=== PATIENT | female | born 1955 | race Caucasian/White ===

== ENCOUNTER 2023-02-06 12:45 | Outpatient (CLI) | payer MEDICARE, BC, SELFPAY ==
--- NOTE | 2023-02-06 13:00 | CRLHL7_ITS ---
For Patients: As a result of the Century Cures Act, medical imaging exams and procedure reports are released immediately into your electronic medical record. You may view this report before your referring provider. If you have questions, please contact your health care provider. Indication: Digestive Disorder HX OF CONNECTIVE TISSUE DISEASE HX OF PROLAPSE REPAIR Technique: Postcontrast CT abdomen and pelvis. 69 cc Isovue 370 intravenous contrast. Please note that all CT scans at this facility use dose modulation, iterative reconstruction, and/or weight-based dosing when appropriate to reduce radiation dose to as low as reasonably achievable. Comparison: 08/21/2019 Findings: Calcified mediastinal lymph node on the left is similar. Calcified lingular nodule is also unchanged. Linear subsegmental scarring is present in the right lower lobe. There is no pleural effusion. Postop changes gastric bypass surgery and splenic artery aneurysm embolization, as before. Elevation right hemidiaphragm is stable. Stable cyst within the dome of the liver within the right hepatic lobe. Other smaller cysts are present within the left hepatic lobe and inferior aspect of the right hepatic lobe. Calcified hepatic and splenic granulomas are present. The pancreatic parenchyma is similar. No biliary obstruction. Gallbladder appears similar. Atherosclerotic changes. No aneurysm. Bladder normal. No pelvic soft tissue mass. Increased stool within the rectum. No diverticulitis. Moderate colonic stool elsewhere. No small bowel obstruction. No abdominal wall hernia. No acute inflammatory changes. Adrenal glands are normal. No perinephric stranding. Incidental parapelvic cysts left kidney. Punctate stone within the right kidney is stable. Impression: Increased stool throughout the colon, particularly in the rectum compatible with constipation. No mechanical bowel obstruction or inflammatory changes. Stable postop changes of gastric bypass and splenic artery aneurysm embolization. Punctate nonobstructing stone right kidney is again noted. Small incidental hepatic cysts. Sequela of granulomatous disease. Please note that all CT scans at this facility use dose modulation, iterative reconstruction, and/or weight-based dosing when appropriate to reduce radiation dose to as low as reasonably achievable. Dictated by Sourav Peres MD @ 02/07/2023 11:53:45 AM (Electronically Signed)
[2023-02-06 13:52] LABS: Creatinine* 0.6 mg/dL (0.5-1.5); Estimated Glomerular Filt Rate 99 ml/min
== END 2023-02-06 12:46 | disposition home or self-care (01) ==
PROVIDERS: PCP Family Medicine; Referring Provider Colon & Rectal Surgery; Visit Provider Colon & Rectal Surgery
DX: K92.9 Disease of digestive system, unspecified (principal); N20.0 Calculus of kidney; K76.89 Other specified diseases of liver; M35.9 Systemic involvement of connective tissue, unspecified
CPT/HCPCS: 36415; 74177; 82565; Q9967

== ENCOUNTER 2024-02-13 10:19 | Outpatient (CLI) | payer MEDICARE, BC, SELFPAY | END 2024-02-13 10:20 | disposition home or self-care (01) | PROVIDERS: PCP Family Medicine; Visit Provider Family Medicine | DX: M54.16 Radiculopathy, lumbar region (principal); M51.36 Other intervertebral disc degeneration, lumbar region | CPT/HCPCS: 62323; J0702; Q9966 ==

== ENCOUNTER 2024-10-22 06:17 | Outpatient (CLI) | payer MEDICARE, BC, SELFPAY | END 2024-10-22 06:18 | disposition home or self-care (01) | LOC: INJ CL 06:20 | PROVIDERS: PCP Family Medicine; Visit Provider Family Medicine | DX: M54.16 Radiculopathy, lumbar region (principal); M48.062 Spinal stenosis, lumbar region with neurogenic claudication | CPT/HCPCS: 62323; J0702; Q9966 ==